=== PATIENT | female | born 1985 | race Two or more races ===

== ENCOUNTER 2022-04-09 00:51 | Emergency (ER) | payer OTHER ==
[~2022-04-09] VITALS: Ht 162.6 cm; Wt 56.7 kg
[~2022-04-09 00:51] MED LIST: NO TOMA MEDICAMENTO
[2022-04-09] MEDS ORDERED: CEPHALEXIN500 MG PO (03:49)
[2022-04-09] MEDS ORDERED: PYRIDIUM DS200 MG PO ×2 (03:49→03:50)
== END 2022-04-09 03:52 ==
LOC: ER 00:51
DX: N30.90 Cystitis, unspecified without hematuria (principal); Z88.6 Allergy status to analgesic agent